=== PATIENT | male | born 1970 | race Two or more races ===

== ENCOUNTER 2022-03-08 18:17 | Emergency (ER) | payer MEDICAID, OTHER ==
[~2022-03-08] VITALS: Ht 172.7 cm; Wt 120.2 kg
[2022-03-08 18:25] VITALS: BP 147/66
== END 2022-03-08 23:43 | disposition left against medical advice (07) ==
LOC: ER 18:19
DX: R07.89 Other chest pain (principal); Z53.21 Procedure and treatment not carried out due to patient leaving prior to being seen by health care provider